=== PATIENT | female | born 1980 | race Caucasian/White ===

== ENCOUNTER 2016-07-01 15:55 | Emergency (ER) | payer BC ==
[~2016-07-01] VITALS: Ht 162.6 cm; Wt 86.2 kg
[2016-07-01] MEDS ORDERED: ABILIFY 5 MG TAB5 M1 PO (16:05)
[2016-07-01] MEDS ORDERED: CELEXA20 MG PO (16:05)
[2016-07-01] MEDS ORDERED: CLONAZEPAM 1 MG1 M1 PO (16:06)
[2016-07-01 16:49] LABS: BASOPHILS 0.6 % (0.0-2.0); EOSINOPHILS 1.9 % (0.0-3.0); MCH 30.8 pg (26.0-34.0); MCHC 34.2 g/dL (28.0-37.0); MCV 90.1 fL (80.0-100.0); MONOCYTES 6.5 % (1.0-8.0); PLATELET COUNT 398 thou/uL (150-400); RBC 4.21 mil/uL (4.20-5.00); RDW 12.9 % (10.5-14.5); WBC 9.5 thou/uL (4.0-11.0)
[2016-07-01 16:50] LABS: URINE BILIRUBIN NEGATIVE (Negative); URINE BLOOD 3+ (Negative); URINE COLOR RED; URINE GLUCOSE-RANDOM* NEGATIVE (Negative); URINE KETONES TRACE (Negative); URINE LEUKOCYTES-REFLEX 2+ (Negative); URINE PROTEIN (DIPSTICK) 3+ (Negative)
[2016-07-01 16:50] LABS: MANUAL DIFF NO
[2016-07-01 16:57] LABS: CASTS None Seen /LPF (None Seen); CRYSTALS None Seen /LPF (None Seen); SQUAMOUS 4-10 Moderate /LPF (0-3); URINE RBC >20 Many /HPF (0-2); URINE WBC-REFLEX 0-5 Rare /HPF (0-5)
[2016-07-01 16:58] LABS: CALCIUM 8.8 mg/dL (8.5-10.1); CREATININE 0.7 mg/dL (0.6-1.3); POTASSIUM 3.4 mmol/L (3.5-5.1)
[2016-07-01 17:03] LABS: ALBUMIN 3.7 g/dL (3.4-5.0); TOTAL BILIRUBIN 0.2 mg/dL (<0.1-1.0); TOTAL PROTEIN 7.2 g/dL (6.4-8.2)
[2016-07-01 17:52] LABS: APTT 29.6 Seconds (24.5-32.8); INR 1.1
[2016-07-01] MEDS ORDERED: KEFLEX500 MG PO (19:45)
[2016-07-01] MEDS ORDERED: NORCO 5-325 TA1 EACH PO (19:51)
[2016-07-01] MEDS ORDERED: ONDANSETRON HCL4 M2 PO (19:51)
[2016-07-01 20:06] VITALS: BP 126/67
== END 2016-07-01 20:10 | disposition home or self-care (01) ==
LOC: ER 15:55
PROVIDERS: Emergency Medicine
DX: N94.6 Dysmenorrhea, unspecified (principal); R55 Syncope and collapse; Z88.6 Allergy status to analgesic agent; Z88.1 Allergy status to other antibiotic agents; Z88.5 Allergy status to narcotic agent